=== PATIENT | female | born 1940 | race Caucasian/White ===

== ENCOUNTER 2023-01-27 15:00 | Outpatient (RCR) | payer MEDICARE, BC, SELFPAY | END 2023-05-27 23:59 | disposition home or self-care (01) | PROVIDERS: PCP Family Medicine; Visit Provider Family Medicine | DX: R10.32 Left lower quadrant pain (principal); S76.012A Strain of muscle, fascia and tendon of left hip, initial encounter; R26.9 Unspecified abnormalities of gait and mobility; R53.1 Weakness; M25.60 Stiffness of unspecified joint, not elsewhere classified; Z51.89 Encounter for other specified aftercare | CPT/HCPCS: 97110; 97140; 97162; 97535 ==

== ENCOUNTER 2023-07-28 15:17 | Observation (INO) | payer MEDICARE, BC, SELFPAY ==
[2023-07-28] VITALS (25 sets, daily range): BP systolic 153–196; BP diastolic 84–104; PULSE 51–74; RESP 16–18; TEMP 36.7–36.8; O2SAT 92–99; BMI 22.8; BMI 22.3
--- NOTE | 2023-07-28 15:48 | CT_ITS ---
Patient: YOGESH BUSTOS Facility:?[facility] Patient ID:?[id number] Site Patient ID:?[id number]. Site :?[id number] Study:?CT-Head W/O-07/28/2023 4:12:05 PM Ordering Physician:SHERIF Final Report: INDICATION: Visual changes. TECHNIQUE: CT head without contrast. COMPARISON: None. FINDINGS: Mild generalized volume loss. Mild ill-defined low attenuation in the periventricular and subcortical white matter. Intracranial atherosclerosis. There is no mass effect or midline shift. No hydrocephalus. No CT evidence of acute hemorrhage or infarction. No abnormal extra-axial fluid collection. Bone windows show no acute calvarial fracture. Paranasal sinuses and orbits as imaged are unremarkable. IMPRESSION: 1. No acute intracranial abnormality. 2. Mild generalized volume loss and changes of chronic small vessel ischemic disease. Dictated by Sean Cortes MD @ 07/28/2023 4:42:44 PM Please note that all CT scans at this facility use dose modulation, iterative reconstruction, and/or weight-based dosing when appropriate to reduce radiation dose to as low as reasonably achievable. Dictated by: Sean Cortes MD @ 07/28/2023 16:42:55 Signed by:?Sean Cortes MD @07/28/2023 4:42:55 PM (Electronic Signature)
--- NOTE | 2023-07-28 15:52 | ED_ITS ---
HPI - General Adult General Chief complaint: Neuro Symptoms/Altered Deficit Stated complaint: vision issues, feeling unwell Time Seen by Provider: 07/28/23 15:18 History of Present Illness HPI narrative: [age] year white female who is on Coumadin for DVT and has a history of hypertension, presents with blurred vision and double vision over about 9 hours today. 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 at her [employer] and noticed some blurred and double vision. She continues to feel that she had been home took a nap and it recurred and her convinced her to come to the ER now she has no headache, no focal neurologic changes no weakness in arms or legs no facial asymmetry. No word-finding inability or no visual perception problem other than just double vision. No eye pain no Related Data Home Medications Medication Instructions Recorded Confirmed cyanocobalamin (vitamin B-12) 1,000 mcg PO DAILY 07/28/23 07/28/23 1,000 mcg tablet diltiazem HCl 120 mg 120 mg PO DAILY 07/28/23 07/28/23 capsule,extended release 24 hr famotidine 20 mg tablet 20 mg PO QPM 07/28/23 07/28/23 warfarin 2.5 mg tablet mg PO 07/28/23 Allergies Allergy/AdvReac Type Severity Reaction Status Date / Time No Known Allergies Allergy Unknown Verified 07/28/23 15:36 Review of Systems Status of ROS: Reports: 6 or more systems reviewed and unremarkable except as noted in History and below Exam Narrative: Exam Narrative: Objective vital signs show elevated blood pressure 196/104 afebrile O2 sat 95% In general patient is no apparent distress talkative communicative no distress, she has nystagmus bilaterally cyst very slight for a couple of beats she has pupils are equal reaction to light extra movements appear intact no facial asymmetry noted mouth is clear neck is supple chest is clear heart rate and rhythm regular 2/6 systolic murmur occasional ectopic beat noted abdomen benign soft extremities are no edema normal strength sensation and tone in her upper lower extremities. Const: Vital Signs, click to edit/add: Vital Signs - 24 hr 07/28/23 15:36 07/28/23 15:45 07/28/23 15:48 Temperature 98.3 F Pulse Rate 63 Pulse Rate [Pulse Oximeter] 63 Respiratory Rate 18 Blood Pressure Blood Pressure [Ri ght Upper Arm] 196/104 H Pulse Oximetry 95 97 95 Oxygen Delivery Me thod Room Air 07/28/23 16:00 07/28/23 16:01 07/28/23 16:57 Temperature Pulse Rate 55 L 57 L 60 Pulse Rate [Pulse Oximeter] Respiratory Rate Blood Pressure 175/95 H Blood Pressure [Ri ght Upper Arm] Pulse Oximetry 96 95 94 Oxygen Delivery Me thod 07/28/23 17:00 07/28/23 17:02 07/28/23 17:03 Temperature Pulse Rate 53 L 57 L 52 L Pulse Rate [Pulse Oximeter] Respiratory Rate 16 Blood Pressure 183/84 H Blood Pressure [Ri ght Upper Arm] Pulse Oximetry 97 94 95 Oxygen Delivery Me thod 07/28/23 17:15 07/28/23 17:30 07/28/23 17:32 Temperature Pulse Rate 51 L 61 68 Pulse Rate [Pulse Oximeter] Respiratory Rate Blood Pressure 177/87 H Blood Pressure [Ri ght Upper Arm] Pulse Oximetry 96 94 95 Oxygen Delivery Me thod 07/28/23 17:45 07/28/23 17:59 07/28/23 18:00 Temperature Pulse Rate 67 56 L 53 L Pulse Rate [Pulse Oximeter] Respiratory Rate Blood Pressure 196/90 H Blood Pressure [Ri ght Upper Arm] Pulse Oximetry 95 95 96 Oxygen Delivery Me thod Course Vital Signs Vital signs: Initial Vital Signs Temperature 98.3 F 07/28/23 15:36 Temperature Source Temporal Artery Scan 07/28/23 15:36 Pulse Rate 63 07/28/23 15:36 Respiratory Rate 18 07/28/23 15:36 Blood Pressure 196/104 H 07/28/23 15:36 Blood Pressure Mean 134 H 07/28/23 15:36 Pulse Oximetry 95 07/28/23 15:36 Oxygen Delivery Method Room Air 07/28/23 15:36 Vital Signs Temperature 98.3 F 07/28/23 15:36 Pulse Rate 63 07/28/23 15:36 Respiratory Rate 18 07/28/23 15:36 Blood Pressure 196/104 H 07/28/23 15:36 Pulse Oximetry 95 07/28/23 15:36 Oxygen Delivery Method Room Air 07/28/23 15:36 Temperature 98.3 F 07/28/23 15:36 Pulse Rate 53 L 07/28/23 18:00 Respiratory Rate 16 07/28/23 17:03 Blood Pressure 196/90 H 07/28/23 17:59 Pulse Oximetry 96 07/28/23 18:00 Oxygen Delivery Method Room Air 07/28/23 15:36 Medications Administered Medications: Discontinued Medications Generic Name Dose Route Start Last Admin Trade Name Khushbu PRN Reason Stop Dose Admin Sodium Chloride 500 mls @ 500 mls/hr 07/28/23 15:48 07/28/23 18:00 0.9 % Sodium Chloride 500 Ml IV 07/28/23 16:47 Infused .Q1H ONE Infusion Medical Decision Making MDM Narrative Medical decision making narrative: 83-year-old female with diplopia today. She is on Coumadin for DVT. They could be reasonable check a head CT, labs, INR. EKG body former and oximeter. Will review after the CT the head. May need Neurology discussion. The patient does notice that the diplopia goes away when I cover 1 eye for her and covering each eye cause it to go away. Binocular diplopia is present. Patient seems to see 2 images on top of each other for example looking at a window shows see a window on top of a window. Addendum 4:[address] Iza Perera stroke Neurology at [facility]. She recommended a CT CTA, and then followed by a plain MRI of the brain. Concern would be for a mid brain or [place] type stroke, certainly could be hemorrhagic 2 will check her INR. Will look for the results, Dr. Perera will review these as well. 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 Perera again. These are ischemic. There was no evidence of CT head or neck angio abnormalities in the neck or the head. Addendum 5:52 p.m.: Discussed with Dr. Sandhya Perera stroke neurologist. She recommended telemetry overnight, IV fluid, lipid profile, hemoglobin A1c. Would just stick with the Coumadin for now. She will have her partners re-evaluate the patient tomorrow and consider adding aspirin, but at the patient's age she felt just sick simply continuing the Coumadin would be appropriate. She also recommended an echocardiogram either inpatient or outpatient. Will discuss with our hospitalist team. She also recommended and OT assessment. Lab Data Labs: Lab Results 07/28/23 Range/Units 16:00 WBC 3.26 L (4.50-11.00) K/uL RBC 4.51 (4.00-5.20) m/uL Hgb 14.3 (12.0-16.0) gm/dL Hct 43.8 (33.0-51.0) % MCV 97 (80-100) fL MCH 32 (26-34) pg MCHC 33 (32-36) gm/dL RDW Coeff of Kalyn 14.2 (11.5-15.5) % Plt Count 168 (140-440) K/uL Neut % (Auto) 50.4 (42.0-72.0) % Lymph % (Auto) 36.2 (20-44) % [place] % (Auto) 11.0 (0.0-11.0) % Eos % (Auto) 1.8 (0.0-7.0) % Baso % (Auto) 0.6 (0.0-3.0) % Neut # (Auto) 1.60 L (1.7-7.0) K/uL Lymph # (Auto) 1.20 (0.90-2.90) K/uL [place] # (Auto) 0.40 (0.00-0.90) K/UL Eos # (Auto) 0.10 (0.00-0.50) K/uL Baso # (Auto) 0.00 (0.00-0.30) K/uL Abs Immat Gran (auto) 0.00 (0.00-0.30) K/uL Imm/Tot Granulo (auto) 0.0 % INR 2.00 H (0.91-1.10) APTT 47 H (23-33) Seconds Sodium 138 (135-149) mmol/L Potassium 4.0 (3.6-5.1) mmol/L Chloride 106 (96-114) mmol/L Carbon Dioxide 29 (20-32) mmol/L Anion Gap 3 L (7-15) mEq/L BUN 14 (7-30) mg/dL Creatinine 0.7 (0.5-1.5) mg/dL Estimated Creat Clear 29.54 Estimated GFR 85 ml/min Glucose 92 (60-115) mg/dL Calcium 9.8 (8.4-10.6) mg/dL Total Bilirubin 0.9 (0.1-1.5) mg/dL Direct Bilirubin 0.0 (0.0-0.5) mg/dL AST 25 (12-35) U/L ALT 12 (4-35) U/L Alkaline Phosphatase 75 (40-150) U/L C-Reactive Protein < 0.5 L (0.5-1.0) mg/dL Total Protein 7.5 (6.0-8.3) g/dL Albumin 4.3 (3.3-5.0) g/dL Discharge Plan Discharge Clinical Impression: Diplopia, Stroke Patient Disposition: Admitted As Observation
--- OUTSIDE RECORDS SUMMARY | 2023-07-28 15:57 | XMS_ITS | Clinical Summary ---
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 08/22/2016 Active cyanocobalamin (Vitamin B-12) 1000 MCG tablet TAKE 1 TABLET (1,000 MCG) BY MOUTH ONCE DAILY. 07/03/2021 Active famotidine (Pepcid) 20 MG tablet Take 20 mg by mouth at bedtime. 08/15/2021 Active warfarin (Coumadin) 2.5 MG tablet Tskr by mouth 5 mg (2.5 mg x 2) every e, Mon, Sat; 2.5 mg (2.5 mg x 1) all other days 06/28/2021 Active acetaminophen (Tylenol) 500 MG tablet Patient states she takes 2 tablets (1000mg) daily (AM) Max acetaminophen dose: 4000mg in 24 hrs. 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 Could consider repeating in 5 years. Took fosamax for years. Acute deep vein thrombosis ( DVT) of popliteal vein of left lower extremity 07/13/2006 Overview: Left leg, recurrent. Primary osteoarthritis of both hips 07/13/2006 Reflux esophagitis 07/13/2006 Immunizations Name Administration Dates Next Due COVID-19 mRNA Vaccine (Pfize r-Purple 12+ Yrs) 12/24/2020,05/12/2020,04/21/2020 Hepatitis A & B 08/22/2002,03/25/2002,02/21/2002 Influenza H1N1 With Preservative 02/03/2009 Influenza High Dose Quadrivalent 12/16/2020,11/12 Influenza Quad Preservative Free 02/03/2009 Influenza Quad Split 12/06/2013 Influenza Seasonal Inj A,B 11/12/2015,,12/13/2011,2008,01/07/2008 Influenza Seasonal Inj A,B High Dose ,12/20/2017,12/12/2016,2015,12/24/2014 Influenza Seasonal Inj A,B Preservative Free 12/14/2009 Influenza Unspecified Formulation 12/04/2008, Pneumococcal Conjugate, (Prevnar)13-valent 06/25/2014 Pneumovax 23 11/28/2005 TD >7Yrs Preservative Free 11/28/2005 TD >7yrs With Preservative 11/28/2005 Tdap (7 years and older) 06/19/2012 Typhoid Oral 02/21/2002 Zoster Shingrix 2 Dose (Shingles) 07/29/2018, Zoster Zostavax (Shingles) 02/15/2010 Medical History Medical History Date Comments Acute deep vein thrombosis ( DVT) of popliteal vein of left lower extremity (HCC) 07/13/2006 Formatting of this note migh t be different from the original. Left leg, recurrent. Adolescent idiopathic scolio sis of thoracic region 05/22/2017 Arthritis of right hand 06/27/2018 Colon polyp 09/25/2009 Formatting of is note might be different from the original. Colonoscopy 09/2009 polyp repeat in 5 years Colonoscopy 03/2015 polyp repeat in 5 years Essential hypertension 06/25/2018 Osteoporosis 05/07/2008 Formatting of is note might be different from the original. dexa in spring 2008 showed osteopenia range and should be stable. Could consider repeating in 5 years. Took fosamax for years. 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 Vitamin B12 deficiency 05/31/2020 Social History Tobacco Use Types Packs/Day Years Used Date Smoking Tobacco: Former Cigarettes 0.1 10 Smokeless Tobacco: Never Comments:no exposure; starte d 28 y/o quit 38 y/o total 10 years X 1 pack every 10 days Sex and Gender Information Value Date Recorded Sex Assigned at Not on file Gender Identity Not on file Sexual Orientation Not on file Job Start Date Occupation Industry Not on file Not on file Not on file Obstetrics History Last Filed Vital Signs Vital Sign Reading Time Taken Comments Blood Pressure 172/89 09/09/2021 10:55 AM CDT Pulse 54 09/09/2021 10:20 AM CDT Temperature 36.3 ??C (97.3 ??F) 09/09/2021 10:16 AM C DT Respiratory Rate - - Oxygen Saturation 98% 09/09/2021 10:16 AM CDT Inhaled Oxygen Concentration - - Weight 53 kg (116 lb 13.5 oz) 09/09/2021 10:16 A M CDT Height - - Body Mass Index - - Plan of Treatment Health Maintenance Due Date Last Done Comments MEDICARE AWV 1940 RSV Vaccination (60+ yrs) (Abrysvo/Arexvy) (1 - 1-dose 60+ series) 1998 DXA,FEMALES AGE 65 OR GREATER 05/19/2003 TETANUS (Standing Order) 06/19/2022 013, 11/28/2005, 11/28/2005 COVID-19 Vaccine ( season) 2022 12/24/2020, 05/12/2020, 04/21/2020 Influenza Vaccine Seasonal (Standing Order) (#1) 2022 12/16/2020, 12/04/2019, 11/28/2018, Additional history exists Hepatitis B Vaccine (Standing Order) Completed 08/22/2002, 03/25/2002, 02/21/2002 PERTUSSIS (Standing Order) Completed 06/19/2012 Pneumococcal Vaccine: 65+ yrs (Standing Order) Completed 06/25/2014, 11/28/2005 Shingrix (Zoster recombinant) vaccine (Standing Order) Completed 07/29/2018, 05/30/2018 HPV Vaccine (Standing Order) Aged Out No longer eligible based on patient's age to complete this topic
--- OUTSIDE RECORDS SUMMARY | 2023-07-28 15:57 | XMS_ITS | Clinical Summary ---
Author Name Unknown Organization [facility] Address [place], [place] [address] Care Team Providers Care Generator Man Name Role Phone Lev Escoto MD Unavailable Unavail Mahnaz Linares DO Primary Care Provider [phone] Allergies No known active allergies Medications Medication Sig Dispensed Refills Start Date End Date Status calcium with vitamin D3 (CALCIUM 500+D) tablet Take 1 tablet by mouth 3 times daily with meals. 0 08/22/2016 Active acetaminophen (TYLENOL EXTRA STRGTH) 500 mg tablet Patient states she takes 2 tablets (1000mg) daily (AM) Max acetaminophen dose: 4000mg in 24 hrs. 0 04/28/2021 Active cetirizine (ZYRTEC) 10 mg tabletIndications: Environmental allergies Take 1 Tablet (10 mg) by mouth once daily. 90 Tablet 11/22/2021 Active diclofenac topical (VOLTAREN) 1 % gelIndications:Art hritis Apply 2-4 g topically to affected area(s) four times daily. As needed for joint pain/arthritis 350 g 04/03/2023 Active dilTIAZem CD (CARDIZEM CD) 120 mg extended release 24 hr capsuleIndications :Paroxysmal SVT (supraventricular tachycardia) (HC) Take 1 Capsule (120 mg) by mouth once daily. 90 Capsule 3 04/03/2023 Active famotidine (PEPCID) 20 mg tabletIndications: Gastroesophageal reflux disease with esophagitis without hemorrhage Take 1 Tablet (20 mg) by mouth at bedtime. 90 Tablet 3 04/03/2023 Active warfarin (COUMADIN) 2.5 mg tabletIndications: Acute deep vein thrombosis (DVT) of popliteal vein of left lower extremity (HC),Anticoagulati on monitoring, INR range 2-3 Taking 2 pills Sat/Sun, Tues, Thurs; 1 pill Mon-Wed-Fri all other days or as directed by INR clinic 145 Tablet 2 04/03/2023 Active cyanocobalamin (VITAMIN B12) 1,000 mcg tabletIndications: Vitamin B12 deficiency TAKE 1 TABLET (1,000 MCG) BY MOUTH ONCE DAILY. 90 Tablet 2 04/26/2023 Active Active Problems Problem Noted Date Diagnosed Date Paroxysmal SVT (supraventricular tachycardia) Closed nondisplaced fracture of left pubis with routine healing 01/25/2023 Overview: Dec 2022: no identifiable injury. Paroxysmal SVT (supraventricular tachycardia) Vitamin B12 deficiency 05/31/2020 Arthritis of right hand 06/27/2018 Essential hypertension 06/25/2018 Adolescent idiopathic scoliosis of thoracic lorelei on 05/22/2017 Transient global amnesia 09/24/2014 Anticoagulation monitoring, INR range 2-3 2013 ACP (advance care planning) 06/21/2013 Overview: Reviewed and they will talk about this. Robina Drew M.D. 06/21/2013 8:43 AM Colon polyp 09/25/2009 Overview: Colonoscopy 09/2009 polyp repeat in 5 years Colonoscopy 03/2015 polyp repeat in 5 years Routine general medical exam ination at a health care facility 05/07/2008 Osteoporosis, unspecified 05/07/2008 Overview: dexa in spring 2008 showed osteopenia range and should be stable. Could consider repeating in 5 years. Took fosamax for years. Dec 2022: Pelvis frigid over the fracture of the pubic ramus on the left side, no identifiable injury. Acute deep vein thrombosis ( DVT) of popliteal vein of left lower extremity 07/13/2006 Overview: Left leg, recurrent. Reflux esophagitis 07/13/2006 Primary osteoarthritis of both hips 07/13/2006 Resolved Problems Problem Noted Date Diagnosed Date Resolved Date DVT of popliteal vein 08/31/20112013 Encounters Date Type Department Care Team Description 07/04/2023 11:30 AM CDT Orders Only [facility] [address] [place] [address] Lab[facility] [place] [facility] 07/04/2023 Anticoagulation (warfarin) [facility] [address] [place] [address] 1, [place] [facility] Anticoagulation 07/04/2023 Travel 06/16/[address] [place] [address] Mahnaz Howell DO Anticoagulation (Annual re-enrollment ) 06/05/2023 9:40 AM CDT Ancillary Procedure [facility] [address] [place] [address] 06/05/2023 Travel 05/24/2023 10:30 AM CDT Orders Only [address] [place] [address] Lab, [place] [facility] 05/24/2023 Anticoagulation (warfarin) [facility] [address] [place] [address] 1, [place] [facility] Anticoagulation 05/24/2023 Telephone [facility] [address] [place] [address] Mahnaz Howell DO Anticoagulation (Lab question) 05/24/2023 Travel from Last 3 Months Immunizations Name Administration Dates Next Due Amb Influenza, Inact (High-d ose Quadrivalent) (Flu Clinic Only) 12/04/2019 COVID-19 vaccine ([employer] [facility] 30mcg/0.3mL) MOE BRIGHT 10/12/2021,05/12/2020,04/21/2020 HepA-HepB (Twinrix) 08/22/2002,03/25/2002,2001 Influenza A (H1N1), Inactiva devan (Age >=3 Years) 02/03/2009 Influenza, High-dose Inactivated 019,12/20/2017,12/12/2016,12/24,12/24/2014 Influenza, High-dose Quadriv alent Inactivated 12/26/2022,12/21/2021,12/16/2020 Influenza, IIV3 (Age 6-35 mos) 12/14/2009 Influenza, IIV3 (Age >=3 years) 11/12/19 16,12/07/2012,12/13/2011,12/04,01/07/2008 Influenza, IIV4 (=>6mos) MDV 12/06/2013 Pneumococcal Poly,23-Valent (Pneumovax) 11/28/2005 Pneumococcal conj 13-Valent (Prevnar 13) 06/25/2014 RSV, Recombinant ADJ Reconst ituted (Arexvy 120MCG/0.5mL) 02/27/2023 Td (Age >=7 Years) 11/28/2005 Td, Preservative Free (age >= 7 Years) 6 Tdap 01/14/2023,06/19/2012 Typhoid (oral) 02/21/2002 Zoster (Shingrix-RZV, recombinant) 07/29/2018, Zoster (Zostavax-ZVL, live) 02/15/2010 Family History Medical History Relation Name Comments Psychiatric illness Father dad at age 97 dementia Cancer Mother mom of lym phoma - at 71 Cancer Sister 1 at 40 - ey e cancer spread to brain No Known Problems Sister 2 Cancer-breast No Family History Cancer-colon No Family History Cancer-ovarian No Family History Relation Name Status Comments Father (Age 97) old age Mother (Age 73) leukemia Sister 1 (Age 40) tumor in h er eye Sister 2 Social History Tobacco Use Types Packs/Day Years Used Date Smoking Tobacco: Former Cigarettes Q uit: 03/13/1969 Smokeless Tobacco: Never Tobacco Cessation:Counseling Given: Not Answered Alcohol Use Standard Drinks/Week Comments Yes 7 (1 standard drink = 0.6 oz pur e alcohol) PHQ-2 Answer Date Recorded PHQ-2 TOTAL SCORE 0 04/03/2023 Social Connections Answer Date Recorded Frequency of Communication with Friends and Fami ly 0 12/22/2022 Alcohol Use Answer Date Recorded How often do you have a drink containing alcohol ? 4 07/13/2022 How many drinks containing a lcohol do you have on a typical day when you are drinking? 0 07/13/2022 How often do you have five or more drinks on one occasion? 0 07/13/2022 Financial Resource Strain Answer Date R ecorded Difficulty of Paying Living Expenses 3 12/22/2022 Difficulty of Paying Living Expenses Not on file 12/22/2022 Food Insecurity Answer Date Recorded Worried About Running Out of Food in the Last Ye ar 1 12/22/2022 Transportation Needs Answer Date Record ed Lack of Transportation (Medical) 1 12/22/2022 Housing Stability Answer Date Recorded Unable to Pay for Housing in the Last Year 1 12/22/2022 Sex and Gender Information Value Date Recorded Sex Assigned at Not on file Gender Identity Not on file Sexual Orientation Not on file Obstetrics History Para Term AB IAB SAB Ectopic Multiple Livin g Live Births 2 2 2 Date Outcome GA Total Labor Labor/2nd/3rd Weight Sex Delivery Anes PTL Penny A1 A5 Name Cl in Para Para Last Filed Vital Signs Vital Sign Reading Time Taken Comments Blood Pressure 148/82 04/03/2023 3:43 PM TELEMARKETING SUPERVISOR Pulse 59 04/03/2023 2:47 PM TELEMARKETING SUPERVISOR Temperature 37 ??C (98.6 ??F) 06/28/2021 1:24 PM CDT Respiratory Rate 16 03/27/2019 12:48 PM TELEMARKETING SUPERVISOR Oxygen Saturation 97% 04/03/2023 2:47 PM TELEMARKETING SUPERVISOR Inhaled Oxygen Concentration - - Weight 51.3 kg (113 lb) 04/03/2023 2:47 PM TELEMARKETING SUPERVISOR Height 149.4 cm (4' 10.82) 04/03/2023 2:[address] Body Mass Index 22.96 04/03/2023 2:47 PM TELEMARKETING SUPERVISOR Plan of Treatment Upcoming Encounters Date Type Department Care Team (Late st Contact Info) Description 08/10/2023 12:45 PM CDT Orders Only [facility] [address] [place] [address] Lab, [place] [facility] Maintenance Due Date Last Done Comments Influenza for age 65+ 11/12/2023 12/26/2022 , 12/21/2021, 12/16/2020, Additional history exists BMI (ht and wt on same day) for age 18+ 04/03/2024 04/03/2023, 06/09/2021, 05/28/2020, Additional history exists Depression screening for age 12+ 04/03/2024 04/03/2023, 12/22/2022, 06/16/2021, Additional history exists Medicare Wellness for age 65+ 04/03/2024, 06/09/2021, 05/28/2020, Additional history exists Tetanus booster 01/14/2033 01/14/2023, 04/0 11/2012, 11/28/2005, Additional history exists Pneumococcal series for age 65+ Completed 5, 11/28/2005 Zoster (shingles) series for age 50+ Completed 07/29/2018, 05/30/2018, 02/15/2010 DEXA/DXA scan for age 65+ Completed 2019, 03/26/2015, 06/24/2008, Additional history exists Tdap Completed 01/14/2023, 06/19/2012 COVID-19 vaccine series Completed 01/18/20, 11/15/2022, 02/15/2022, Additional history exists Procedures Procedure Name Priority Date/Time Associated Diagnosis Comments INR,POCT Routine 07/04/2023 11:31 AM CDT Acute deep vein thrombosis (DVT) of popliteal vein of left lower extremity (HC) Anticoagulation monitoring, INR range 2-3 XR MAMMO EULALIA BILAT SCREEN Routine 06/05/2023 9:54 AM CDT Visit for screening mammogram INR,POCT Routine 05/24/2023 10:31 AM CDT Acute deep vein thrombosis (DVT) of popliteal vein of left lower extremity (HC) Anticoagulation monitoring, INR range 2-3 XR DXA BONE DENSITY 1 SITE AXIAL AND 1 SITE PERIPHERAL Routine 04/03/2019 9:19 AM TELEMARKETING SUPERVISOR Other specified disorders of bone density and structure, multiple sites Osteopenia, unspecified location from Last 3 Months or Most Recently Relevant to Health Maintenance Results * (ABNORMAL) INR,POCT (07/04/2023 11:31 AM CDT) Only the most recent of2 resultswithin the time period is included. INR 2.2(H) <1.3 07/04/2023 11:39 AM CDT [facility] Blood BLOOD SPECIMEN / Unknown 07/04/2023 11:31 AM CDT 07/04/2023 11:39 AM CDT Narrative [facility] - 07/04/2023 11:39 AM CDT ?Therapeutic Range 2.0-3.0 for most anticoagulated patients 2.5-3.5 or 4.0 for high risk patients Mahnaz Howell DO LABORATORY [facility] [address] [place] [address], * XR MAMMO EULALIA BILAT SCREEN (06/05/2023 9:54 AM CDT) Anatomical Region Laterality Modality BREASTS, Breast Left, Breast Right Bilateral Mammography Impressions 06/05/2023 12:39 PM CDT ??There is no radiographic evidence for malignancy. ??Recommend annual mammograms. MAMMOGRAM ASSESSMENT: ??ACR 1 Negative PATIENTS: You will also receive a letter with your examination results in an easy to read format. ??If you have questions about your results, please contact your referring provider. Narrative 06/05/2023 12:39 PM CDT For Patients: As a result of the Century Cures Act, medical imaging exams and procedure reports are released immediately into your electronic medical record. You may view this report before your referring provider. If you have questions, please contact your health care provider. XR MAMMO EULALIA BILAT SCREEN [[id number]] CLINICAL HISTORY: ??This is an asymptomatic 83 y.o. patient. INDICATION FOR EXAM: Mammogram Screening. TECHNIQUE: CC & MLO views were obtained. ??This study was evaluated with the assistance of Computer-Aided Detection. Breast Tomosynthesis was used in interpretation. COMPARISON FILM: Yes 05/23/22 [facility] 05[facility]04/21 [facility] FINDINGS: ??The breasts are heterogeneously dense, which may obscure small masses. There are no dominant masses, suspicious micro calcifications or areas of architectural distortion. Mahnaz Howell DO MAMMO * XR DXA BONE DENSITY 1 SITE AXIAL AND 1 SITE PERIPHERAL (04/03/2019 9:19 AM TELEMARKETING SUPERVISOR) Anatomical Region Laterality Modality LUMBAR SPINE Other Narrative 04/09/2019 8:56 AM TELEMARKETING SUPERVISOR Please see scanned document for results of this study. Mahnaz Howell DO DEXA from Last 3 Months or Most Recently Relevant to Health Maintenance Care Teams Generator Man Relationship Specialty Start Date End Date Mahnaz Howell DO [address] [place] [address] PCP - General Family Practice 03/27/19 Lev Escoto MD Orthopedics Surgery - Orthopedics 06/13/11
--- NOTE | 2023-07-28 15:58 | MR_ITS ---
Patient: YOGESH BUSTOS Facility:?[facility] Patient ID:?[id number] Site Patient ID:?[id number]. Site :?[id number] Study:?MRI-Head W/O-07/28/2023 5:07:25 PM Ordering Physician:PENNIE GORMAN Final Report: Indication: Diplopia Technique: Multiplanar, multisequence MRI of the brain obtained without contrast. Comparison: Earlier same day CT head and CTA head/neck Findings: There is a small (8 mm) area of acute ischemia involving the anteromedial left thalamus, with an additional punctate focus at the left parietal cortex. No evidence of hemorrhagic transformation. Punctate FLAIR hyperintense foci throughout the supratentorial white matter, typical of minor chronic microangiopathy. Generalized cerebral volume loss. Unremarkable midline structures. Preserved major intracranial flow voids. Normal bone marrow signal. No paranasal sinus air-fluid level or mastoid effusion. Bilateral lens implants. Impression: 1. 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 2. No evidence of hemorrhagic transformation or midline shift. 3. Mild generalized cerebral volume loss and minor chronic microangiopathy changes. Exam findings were discussed with Pennie Estrella at 5:21 p.m. on 07/28/2023. Dictated by Kathy Gomez MD @ 07/28/2023 5:23:54 PM Signed by:?Kathy Gomez MD @07/28/2023 5:23:54 PM (Electronic Signature)
--- NOTE | 2023-07-28 16:13 | CT_ITS ---
Patient: YOGESH BUSTOS Facility:?[facility] Patient ID:?[id number] Site Patient ID:?[id number]. Site :?[id number] Study:?CT-Neck Angio W/IV ONLY-07/28/2023 4:37:34 PM Ordering Physician:SHERIF Final Report: INDICATION: Diplopia, vision changes. TECHNIQUE: CTA neck with contrast bolus tracking, 3D angiographic rendering using maximum intensity projection (MIP) and images permanently archived. FINDINGS: There is carotid atherosclerosis. There is no significant carotid artery stenosis or dissection. There is no significant vertebral artery stenosis or dissection. The soft tissues of the neck are within normal limits. The cervical spine is in normal alignment. Degenerative changes are noted in the cervical spine. IMPRESSION: No significant carotid or vertebral artery stenosis or dissection. Please note that all CT scans at this facility use dose modulation, iterative reconstruction, and/or weight-based dosing when appropriate to reduce radiation dose to as low as reasonably achievable. Dictated by Mj Bajwa MD @ 07/28/2023 7:20:18 PM Signed by:?Mj Bajwa MD @07/28/2023 7:20:18 PM (Electronic Signature)
--- NOTE | 2023-07-28 16:13 | CT_ITS ---
Patient: YOGESH BUSTOS Facility:?[facility] Patient ID:?[id number] Site Patient ID:?[id number]. Site :?1940 Study:?CT-Head Angio W/IV ONLY-07/28/2023 4:38:19 PM Ordering Physician:SHERIF Final Report: INDICATION: Diplopia, vision changes. TECHNIQUE: CTA head with contrast bolus tracking, 3D angiographic rendering using maximum intensity projection (MIP) and images permanently archived. FINDINGS: There is normal opacification of the intracranial vasculature. There is no large vessel occlusion. No aneurysm is identified. IMPRESSION: Unremarkable head CTA. Please note that all CT scans at this facility use dose modulation, iterative reconstruction, and/or weight-based dosing when appropriate to reduce radiation dose to as low as reasonably achievable. Dictated by Mj Bajwa MD @ 07/28/2023 7:22:00 PM Signed by:?Mj Bajwa MD @07/28/2023 7:22:00 PM (Electronic Signature)
[2023-07-28 16:17] LABS: Basophils Percent Auto 0.6 % (0.0-3.0); Eosinophils Percent Auto 1.8 % (0.0-7.0); Hematocrit 43.8 % (33.0-51.0); Hemoglobin* 14.3 gm/dL (12.0-16.0); Lymphocytes Percent Auto 36.2 % (20-44); Mean Corpuscular HGB Conc 33 gm/dL (32-36); Mean Corpuscular Hemoglobin 32 pg (26-34); Mean Corpuscular Volume 97 fL (80-100); Neutrophils Percent Auto 50.4 % (42.0-72.0); Platelet Count* 168 K/uL (140-440); RDW Coefficient of Variation % 14.2 % (11.5-15.5); Red Blood Count 4.51 m/uL (4.00-5.20); White Blood Count* 3.26 K/uL (4.50-11.00)
[2023-07-28 16:24] LABS: Chloride* 106 mmol/L (96-114)
[2023-07-28 16:25] LABS: Albumin* 4.3 g/dL (3.3-5.0); Slide Review Reflex No; Sodium* 138 mmol/L (135-149)
[2023-07-28 16:27] LABS: Prothrombin Time 24.2 Seconds
[2023-07-28 16:28] LABS: Alanine Aminotransferase* 12 U/L (4-35); Anion Gap 3 mEq/L (7-15); Aspartate Amino Transferase* 25 U/L (12-35); Bilirubin Total* 0.9 mg/dL (0.1-1.5); Blood Urea Nitrogen* 14 mg/dL (7-30); Carbon Dioxide* 29 mmol/L (20-32); Creatinine* 0.7 mg/dL (0.5-1.5); Est. Creatinine Clearance* 29.54; Estimated Glomerular Filt Rate 85 ml/min; Partial Thromboplastin Time* 47 Seconds (23-33); Total Protein* 7.5 g/dL (6.0-8.3)
[2023-07-28 16:29] LABS: Calcium* 9.8 mg/dL (8.4-10.6); Glucose* 92 mg/dL (60-115)
[2023-07-28 16:36] LABS: C Reactive Protein* < 0.5 mg/dL (0.5-1.0)
[2023-07-28 16:45] LABS: Alkaline Phosphatase* 75 U/L (40-150)
[2023-07-28] MEDS: 0.9 % SODIUM CHLORIDE 500 ML 500 ML IV (17:15)
--- NOTE | 2023-07-28 18:06 | P.IMHP_ITS ---
Hospitalist- H&P: CHRISSY History of Present Illness Date Seen: 07/28/23 Chief complaint: vision issues, feeling unwell Narrative: Deborah Cuevas is a 83 year old female admitted through the emergency department with onset this morning of double vision, speech impairment and unsteady gait. She awoke before 6:00 a.m. and was feeling fine. She drove to her [place] about 615 and she said while she was driving her vision seemed off. She attempt to get out of the car but had trouble walking at that time. She also reported having trouble talking at that time. She went back to her car and sat in her car and fell asleep. Around 8:06 a.m. she awoke while sitting in her car. She was still having trouble with double vision and feeling unsteady on her feet so she decided to go home. Her noted that she appeared to be somewhat pale. She was able to read the newspaper at this time. She decided to lay down at home. She again was sleeping for appeared of time. When she awoke she continued to have double vision and feel unbalanced in her gait and had generalized weakness so she came to the emergency room. At this time she reports feeling entirely well. She is not aware of any difficulty with speaking or understanding speech or finding words. She reports her vision is normal without blurring or double vision. She does not have a sense of spinning or the room spinning. She does not have any nausea or vomiting. She does not have a headache. She does not have any focal weakness. She feels like her hands, arms and legs are moving normally. No numbness or tingling. She has a remote history of a DVT which sounds like it was unprovoked and she has been on chronic warfarin therapy since then. She has had monthly INRs which are in the low normal therapeutic range between 2 and 2.5 over the last 3 months. She is not aware of having diabetes. She does have a history of paroxysmal SVT and is on diltiazem for that. She also has hypertension. She is unaware of having a problem with her lipids. No previous history of stroke or neurologic deficits. 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 She has been quite busy cleaning out her own home and setting up the garage sale at her local [employer]. 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 (ICD-10) Vitamin B12 deficiency ?E53.8 - Deficiency of other specified B group vitamins (ICD-10) Paroxysmal SVT (supraventricular tachycardia) ?I47.10 - Supraventricular tachycardia, unspecified (ICD-10) Osteoporosis ?M81.0 - Age-related osteoporosis without current pathological fracture (ICD- 10) DVT (deep venous thrombosis) ?I82.409 - Acute embolism and thrombosis of unspecified deep veins of unspecified lower extremity (ICD-10) Primary generalized (osteo)arthritis ?M15.0 - Primary generalized (osteo)arthritis (ICD-10) Gastroesophageal reflux ?K21.9 - Gastro-esophageal reflux disease without esophagitis (ICD-10) Surgical History (Updated 07/28/23 @ 19:00 by Fadi Perera MD) History of arthroplasty of left hip ?Z96.642 - Presence of left artificial hip joint (ICD-10) History of total right hip arthroplasty ?Z96.641 - Presence of right artificial hip joint (ICD-10) History of colonoscopy ?Z98.890 - Other specified postprocedural states (ICD-10) Family History (Updated 07/28/23 @ 19:01 by Fadi Perera MD) Mother Lymphoma Father Alzheimers disease Social History (Updated 07/28/23 @ 19:01 by Fadi Perera MD) Narrative: She lives independently with her , Gurwinder. He is healthcare power of real estate associate attorney. Code status is DNR. She does not smoke. She occasionally drinks alcohol. Meds Home Medications and Allergies Home Medications Medication Instructions Recorded Confirmed Type cyanocobalamin (vitamin B-12) 1,000 mcg PO DAILY 07/28/23 07/28/23 History 1,000 mcg tablet diltiazem HCl 120 mg 120 mg PO DAILY 07/28/23 07/28/23 History capsule,extended release 24 hr famotidine 20 mg tablet 20 mg PO QPM 07/28/23 07/28/23 History warfarin 2.5 mg tablet mg PO 07/28/23 History Allergies Allergy/AdvReac Type Severity Reaction Status Date / Time No Known Allergies Allergy Unknown Verified 07/28/23 15:36 Exam Narrative: Exam Narrative: She is alert and appears in no distress. Speech is normal. Speech is fluent. She has good comprehension and good articulation. She is oriented to her circumstances. She answers questions with fairly good detail about recent events and past medical history. Head is without trauma. Eyes are normal. Pupils are equal round reactive to light. Extraocular movements are full. Visual garcia are intact. No dysconjugate gaze. There is no facial asymmetry. Intact sensation in her face. Oropharynx is normal. Tongue is midline. Neck is supple without mass or adenopathy. Respirations are clear to auscultation. Good air exchange all lung garcia. Back is noted to have both kyphosis and scoliosis. No tenderness in her back. Cardiovascular: S1, S2, 2/6 systolic ejection murmur heard best at the right upper sternal border. No gallop or rub. Regular rate and rhythm. Abdomen: Bowel sounds are present. Abdomen is soft without tenderness or mass. External genitalia normal. Extremities: Intact peripheral pulses. No edema. Upper extremity strength testing is 5/5 in bilateral shoulder flexion and extension, elbow flexion and extension, wrist flexion extension, pole shaver helper strength and finger extension. Intact sensation to soft touch as well. Lower extremity strength testin/5 in bilateral hips, knee flexion and extension, ankle dorsiflexion plantar flexion and great toe dorsiflexion. Const: Vital Signs, click to edit/add: Vital Signs - 24 hr 07/28/23 15:36 07/28/23 15:45 07/28/23 15:48 Temperature 98.3 F Pulse Rate 63 Pulse Rate [Pulse Oximeter] 63 Respiratory Rate 18 Blood Pressure Blood Pressure [Ri ght Upper Arm] 196/104 H Pulse Oximetry 95 97 95 Oxygen Delivery Me thod Room Air 07/28/23 16:00 07/28/23 16:01 07/28/23 16:57 Temperature Pulse Rate 55 L 57 L 60 Pulse Rate [Pulse Oximeter] Respiratory Rate Blood Pressure 175/95 H Blood Pressure [Ri ght Upper Arm] Pulse Oximetry 96 95 94 Oxygen Delivery Me thod 07/28/23 17:00 07/28/23 17:02 07/28/23 17:03 Temperature Pulse Rate 53 L 57 L 52 L Pulse Rate [Pulse Oximeter] Respiratory Rate 16 Blood Pressure 183/84 H Blood Pressure [Ri ght Upper Arm] Pulse Oximetry 97 94 95 Oxygen Delivery Me thod 07/28/23 17:15 07/28/23 17:30 07/28/23 17:32 Temperature Pulse Rate 51 L 61 68 Pulse Rate [Pulse Oximeter] Respiratory Rate Blood Pressure 177/87 H Blood Pressure [Ri ght Upper Arm] Pulse Oximetry 96 94 95 Oxygen Delivery Me thod 07/28/23 17:45 07/28/23 17:59 07/28/23 18:00 Temperature Pulse Rate 67 56 L 53 L Pulse Rate [Pulse Oximeter] Respiratory Rate Blood Pressure 196/90 H Blood Pressure [Ri ght Upper Arm] Pulse Oximetry 95 95 96 Oxygen Delivery Me thod Documenting provider has reviewed patient's vital signs: yes Hospitalist - H&P: Result Labs Labs: Short CBC 07/28/23 Range/Units 16:00 WBC 3.26 L (4.50-11.00) K/uL Hgb 14.3 (12.0-16.0) gm/dL Hct 43.8 (33.0-51.0) % Plt Count 168 (140-440) K/uL BMP 07/28/23 16:00 Sodium 138 Potassium 4.0 Chloride 106 Carbon Dioxide 29 BUN 14 Creatinine 0.7 Glucose 92 Calcium 9.8 Liver Function 07/28/23 Range/Units 16:00 Total Bilirubin 0.9 (0.1-1.5) mg/dL Direct Bilirubin 0.0 (0.0-0.5) mg/dL AST 25 (12-35) U/L ALT 12 (4-35) U/L Alkaline Phosphatase 75 (40-150) U/L Albumin 4.3 (3.3-5.0) g/dL ECG Attestation: I personally reviewed and interpreted this ECG as follows: (Normal sinus rhythm) Imaging MR Brain: Radiologist's impression: Study:?MRI-Head W/O-07/28/2023 5:07:25 PM Ordering Physician:PENNIE GORMAN Final Report: Indication: Diplopia Technique: Multiplanar, multisequence MRI of the brain obtained without contrast. Comparison: Earlier same day CT head and CTA head/neck Findings: There is a small (8 mm) area of acute ischemia involving the anteromedial left thalamus, with an additional punctate focus at the left parietal cortex. No evidence of hemorrhagic transformation. Punctate FLAIR hyperintense foci throughout the supratentorial white matter, typical of minor chronic microangiopathy. Generalized cerebral volume loss. Unremarkable midline struc tures. Preserved major intracranial flow voids. Normal bone marrow signal. No paranasal sinus air-fluid level or mastoid effusion. Bilateral lens implants. Impression: 1. 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 2. No evidence of hemorrhagic transformation or midline shift. 3. Mild generalized cerebral volume loss and minor chronic microangiopathy changes. Exam findings were discussed with Pennie Estrella at 5:21 p.m. on 07/28/2023. CT scan - head: Radiologist's impression: Study:?CT-Head Angio W/IV ONLY-07/28/2023 4:38:19 PM Ordering Physician:SHERIF Preliminary Report: Prelim: CTA head: 1. No intracranial large vessel occlusion or critical stenosis. CTA neck: 1. No hemodynamically significant stenosis or dissection in the neck. Assessment and Plan Assessment and plan (1) Stroke: Problem comment: Stroke manifested as unsteady gait, diplopia and difficulty speaking. This appears to be resolved at this point. Continue to monitor in the hospital and initiate evaluation and modification of risk factors. With therapeutic INR would not give it additional antiplatelet therapy. Obtain echo, cardiac monitoring, initiate evaluation of lipids and statin therapy. Therapy to evalu ate for subtle deficits. Status: Acute (2) Diplopia: Problem comment: Due to stroke, appears to resolved Status: Acute (3) Hypertension: Problem comment: Blood pressure elevated at this time probably due to stroke. Permissive hypertension but likely resume Cardizem for hypertension and SVT on discharge Status: Acute (4) Chronic anticoagulation: Problem comment: Continue warfarin Status: Acute Plan Admit to the hospital for ongoing evaluation management of stroke and cardiovascular risk factors. Total Time Spent Total Time Spent: Total time spent today is 75 minutes, 50 minutes in coordination of care discussing with patient and other providers ongoing management of stroke.
--- OUTSIDE RECORDS SUMMARY | 2023-07-28 19:38 | XMS_ITS | Clinical Summary ---
Author Name Unknown Organization [employer] [facility] Address [place], [place] [address] Care Team Providers Care Water Mangle Tender Name Role Phone Lev Escoto MD Unavailable Unavail Mahnaz Linares DO Primary Care Provider [phone] Allergies No known active allergies Medications Medication [...] Encounters Date Type Department Care Team Description 07/28/2023 Office Visit [facility] [address] [place] [address] Sandhya Scott MD Telehealth ([facility] (phone consult)) 07/04/2023 11:30 AM CDT Orders Only [facility] [address] [place] [address] Lab, [place] [facility] 07/04/2023 Anticoagulation (warfarin) [facility] [address] [place] [address] 1, [facility] Anticoagulation 07/04/2023 Travel 06/16/[address] [address] Mahnaz Howell DO Anticoagulation (Annual re-enrollment ) 06/05/2023 9:40 AM CDT Ancillary Procedure [address] [address] 06/05/2023 Travel 05/24/2023 10:30 AM CDT Orders Only [address] [address] Lab, [place] [facility] 05/24/2023 Anticoagulation (warfarin) [facility] [address] [place] [address] 1, [facility] Anticoagulation 05/24/[address] [address] Mahnaz Howell DO Anticoagulation (Lab question) 05/24/2023 Travel from Last 3 Months Immunizations Name Administration Dates Next Due Amb Influenza, Inact (High-d ose Quadrivalent) (Flu Clinic Only) 12/04/2019 COVID-19 vaccine ([employer] 30mcg/0.3mL) MOE BRIGHT 10/12/2021,05/12/2020,04/21/2020 HepA-HepB ([employer]) 08/22/2002,03/25/2002,2001 Influenza A (H1N1), Inactivdavis hartman (Age >=3 Years) 02/03/2009 Influenza, High-dose Inactivated [...] Comments Blood Pressure 148/82 04/03/2023 3:43 PM [employer] Pulse 59 04/03/2023 2:47 PM [employer] Temperature 37 ??C (98.6 ??F) 06/28/2021 1:24 PM CDT Respiratory Rate 16 03/27/2019 12:48 PM [employer] Oxygen Saturation 97% 04/03/2023 2:47 PM [employer] Inhaled Oxygen Concentration - - Weight 51.3 kg (113 lb) 04/03/2023 2:47 PM [employer] Height 149.4 cm (4' 10.82) 04/03/2023 2:[address] Body Mass Index 22.96 04/03/2023 2:47 PM [employer] Plan of Treatment Upcoming Encounters Date Type Department Care Team (Late st Contact Info) Description 08/10/2023 12:45 PM CDT Orders Only [facility] [address] [place] [address] [facility], [place] [facility] Maintenance Due Date Last [...] 1 SITE PERIPHERAL Routine 04/03/2019 9:19 AM [employer] Other specified disorders of bone density and structure, multiple sites Osteopenia, unspecified location from Last 3 Months or Most Recently Relevant to Health Maintenance Results * (ABNORMAL) INR,POCT (07/04/2023 11:31 AM CDT) Only the most recent of2 resultswithin the time period is included. INR 2.2(H) <1.3 07/04/2023 11:39 AM CDT [facility] Blood BLOOD SPECIMEN / Unknown 07/04/2023 11:31 AM CDT 07/04/2023 11:39 AM CDT Narrative [facility] - 07/04/2023 11:39 AM CDT ?Therapeutic Range 2.0-3.0 for most anticoagulated patients 2.5-3.5 or 4.0 for high risk patients Mahnaz Howell DO LABORATORY Performing Organization Address City/State/[facility] Co de Phone Number [facility] [address] [place] [address], * XR MAMMO EULALIA BILAT SCREEN (06/05/2023 [...] care provider. XR MAMMO EULALIA BILAT SCREEN [[id number]] CLINICAL HISTORY: ??This is an asymptomatic 83 y.o. patient. INDICATION FOR EXAM: Mammogram Screening. TECHNIQUE: CC & MLO views were obtained. ??This study was evaluated with the assistance of Computer-Aided Detection. Breast Tomosynthesis was used in interpretation. COMPARISON FILM: Yes 05/23/22 [facility] 05/04/21 [facility] FINDINGS: ??The breasts are heterogeneously dense, which may obscure small masses. There are no dominant masses, suspicious micro calcifications or areas of architectural distortion. Mahnaz Howell DO MAMMO * XR DXA BONE DENSITY 1 SITE AXIAL AND 1 SITE PERIPHERAL (04/03/2019 9:19 AM [employer]) Anatomical Region Laterality Modality LUMBAR SPINE Other Narrative 04/09/2019 8:56 AM [employer] Please see scanned document for results of this study. Mahnaz Howell DO DEXA from Last 3 Months or Most Recently Relevant to Health Maintenance Care Teams Water Mangle Tender Relationship Specialty Start Date End Date Mahnaz Howell DO [address] [place] [address] PCP - General Family Practice 03/27/19 Lev Escoto MD Orthopedics Surgery - Orthopedics 06/13/11
--- OUTSIDE RECORDS SUMMARY | 2023-07-28 19:38 | XMS_ITS | Clinical Summary ---
Author Name Unknown Organization [facility] [employer] [facility] Address [address] [address] Phone Care Team Providers Care Cab Starter Name Role Phone Unavailable Primary Care Provider [...]
[2023-07-28] MEDS: ACETAMINOPHEN 325 MG TABLET 650 MG PO (21:17)
[2023-07-28] MEDS: SODIUM CHLORIDE 0.9 % (FLUSH) 10 ML SYRINGE 5 ML IVF (21:18)
[2023-07-29 03:00] VITALS: PULSE 53
[2023-07-29 03:44] VITALS: BP 149/81; PULSE 53; RESP 14; TEMP 36.6; O2SAT 91
--- NOTE | 2023-07-29 06:37 | PC.NURSE ---
Arrived to floor at 2330. A&O pleasant and cooperative. Permissive hypertension. VS otherwise stable. Neuros unremarkable. Denies any headache, dizziness, or vision changes. Up w/ SBA to the bathroom. Denies pain. Using call light appropriately.
[2023-07-29 06:49] LABS: INR 1.86 (0.91-1.10); Prothrombin Time 22.8 Seconds
[2023-07-29 07:35] VITALS: BP 147/91; PULSE 61; RESP 16; TEMP 36.3; O2SAT 93
[2023-07-29 07:54] LABS: Cholesterol* 197 mg/dL (90-199)
[2023-07-29 07:55] LABS: HDL Cholesterol* 83 mg/dL (>=50); LDL Cholesterol Calculated 94 mg/dL (<100); Triglycerides* 99 mg/dL (40-149)
[2023-07-29 09:00] VITALS: PULSE 70
[2023-07-29] MEDS: WARFARIN 2.5 MG TABLET 5 MG PO (09:11)
[2023-07-29] MEDS: ROSUVASTATIN CALCIUM 10 MG TABLET 20 MG PO (09:11)
[2023-07-29] MEDS: CYANOCOBALAMIN (VITAMIN B-12) 500 MCG TABLET 1000 MCG PO (09:11)
[2023-07-29 11:00] VITALS: BP 159/91; PULSE 58; RESP 16; TEMP 36.7; O2SAT 95
--- NOTE | 2023-07-29 13:40 | P.DS_ITS ---
DS: Providers Provider Date Seen: 07/29/23 Date of admission: 07/28/23 19:35 Primary care physician: Mahnaz Howell DO Admitting Clinician: Fadi Perera MD Attending Physician on discharge: Morenita Rosario [facility], PA-C [place] Hospitalist Date of Discharge: 07/29/23 DS: Diagnosis Discharge Diagnosis (1) Stroke: Status: Acute Problem details: Stroke manifested as unsteady gait, diplopia and difficulty speaking. Symptoms resolving prior to discharge. CT head without acute intracranial abnormality. MRI brain showing small acute infarct involving the anteromedial left thalamus with an additional punctate focus of ischemia at the left parietal cortex. Telemetry overnight without acute activity. Lipid panel rather unremarkable. Echocardiogram shows 1. Normal LV size, normal wall thickness, normal global systolic function with an estimated EF of 65 - 70%. 2. Right ventricular cavity size is normal, global systolic RV function is normal. 3. Mildly enlarged left atrium. Discussed with Dr. Goss, Neurology. Suspects embolic stroke of unidentified source. Recommends discontinuing warfarin, starting Xarelto 20 mg daily. Continue rosuvastatin. No need for outpatient neurology follow-up at this time. Could consider outpatient Zio patch monitoring x2 weeks for possible arrhythmia with PCP. (2) Diplopia: Status: Acute Problem details: Due to stroke, resolved prior to discharge (3) Hypertension: Status: Acute Problem details: Blood pressure elevated at this time probably due to stroke. Permissive hypertension allowed during hospital course. Resuming Cardizem for hypertension and SVT on discharge (4) Chronic anticoagulation: Status: Acute Problem details: Per neurology recommendations, discontinue warfarin, start Xarelto 20 mg daily DS: Summary Hospital Course Hospital Course: [age] year old femur past medical history significant for hypertension, chronic anticoagulation was admitted to the medical floor for further management acute CVA. Course of care and details as noted above. Remainder of chronic medical comorbidities were monitored and managed with home medications. Status at Discharge Overall status at discharge: patient is back to baseline Time Spent with Patient Time attestation: Total time spent providing and/or coordinating discharge services: Time spent: Greater than 30 minutes Exam Narrative: Exam Narrative: PHYSICAL EXAM General: Pleasant, conversant, NAD Cardiovascular: RRR Pulmonary: No dyspnea Neurological: Alert, answering questions appropriately, no focal findings this morning Skin: Warm, dry. Const: Vital Signs, click to edit/add: Vital Signs - 24 hr 07/28/23 15:36 07/28/23 15:45 07/28/23 15:48 Temperature 98.3 F Pulse Rate 63 Pulse Rate [Pulse Oximeter] 63 Respiratory Rate 18 Blood Pressure Blood Pressure [Le ft Arm] Blood Pressure [Ri ght Arm] Blood Pressure [Ri ght Upper Arm] 196/104 H Pulse Oximetry 95 97 95 Oxygen Delivery Me thod Room Air 07/28/23 16:00 07/28/23 16:01 07/28/23 16:57 Temperature Pulse Rate 55 L 57 L 60 Pulse Rate [Pulse Oximeter] Respiratory Rate Blood Pressure 175/95 H Blood Pressure [Le ft Arm] Blood Pressure [Ri ght Arm] Blood Pressure [Ri ght Upper Arm] Pulse Oximetry 96 95 94 Oxygen Delivery Me thod 07/28/23 17:00 07/28/23 17:02 07/28/23 17:03 Temperature Pulse Rate 53 L 57 L 52 L Pulse Rate [Pulse Oximeter] Respiratory Rate 16 Blood Pressure 183/84 H Blood Pressure [Le ft Arm] Blood Pressure [Ri ght Arm] Blood Pressure [Ri ght Upper Arm] Pulse Oximetry 97 94 95 Oxygen Delivery Me thod 07/28/23 17:15 07/28/23 17:30 07/28/23 17:32 Temperature Pulse Rate 51 L 61 68 Pulse Rate [Pulse Oximeter] Respiratory Rate Blood Pressure 177/87 H Blood Pressure [Le ft Arm] Blood Pressure [Ri ght Arm] Blood Pressure [Ri ght Upper Arm] Pulse Oximetry 96 94 95 Oxygen Delivery Me thod 07/28/23 17:45 07/28/23 17:59 07/28/23 18:00 Temperature Pulse Rate 67 56 L 53 L Pulse Rate [Pulse Oximeter] Respiratory Rate Blood Pressure 196/90 H Blood Pressure [Le ft Arm] Blood Pressure [Ri ght Arm] Blood Pressure [Ri ght Upper Arm] Pulse Oximetry 95 95 96 Oxygen Delivery Me thod 07/28/23 18:03 07/28/23 18:15 07/28/23 18:30 Temperature Pulse Rate 58 L 52 L 62 Pulse Rate [Pulse Oximeter] Respiratory Rate Blood Pressure 181/84 H Blood Pressure [Le ft Arm] Blood Pressure [Ri ght Arm] Blood Pressure [Ri ght Upper Arm] Pulse Oximetry 96 95 99 Oxygen Delivery Me thod 07/28/23 18:32 07/28/23 18:45 07/28/23 19:35 Temperature 98.1 F Pulse Rate 63 56 L Pulse Rate [Pulse Oximeter] 67 Respiratory Rate 16 Blood Pressure 196/95 H Blood Pressure [Le ft Arm] 166/92 H Blood Pressure [Ri ght Arm] Blood Pressure [Ri ght Upper Arm] Pulse Oximetry 93 94 96 Oxygen Delivery Ok thod Room Air 07/28/23 19:38 07/28/23 22:27 07/28/23 22:34 Temperature 98.3 F 98.0 F Pulse Rate 57 L Pulse Rate [Pulse Oximeter] 74 60 Respiratory Rate 16 16 Blood Pressure Blood Pressure [Le ft Arm] 153/89 H Blood Pressure [Ri ght Arm] Blood Pressure [Ri ght Upper Arm] 154/84 H Pulse Oximetry 94 [facility] 07/28/23 22:37 07/29/23 03:00 07/29/23 03:44 Temperature 97.9 F Pulse Rate Pulse Rate [Pulse Oximeter] 60 53 L 53 L Respiratory Rate 14 Blood Pressure Blood Pressure [Le ft Arm] 149/81 H Blood Pressure [Ri ght Arm] Blood Pressure [Ri ght Upper Arm] Pulse Oximetry 91 Oxygen Delivery Ok thod Room Air 07/29/23 07:35 07/29/23 09:00 07/29/23 11:00 Temperature 97.4 F L 98.1 F Pulse Rate 70 Pulse Rate [Pulse Oximeter] 61 58 L Respiratory Rate 16 16 Blood Pressure Blood Pressure [Le ft Arm] Blood Pressure [Ri ght Arm] 147/91 H 159/91 H Blood Pressure [Ri ght Upper Arm] Pulse Oximetry 93 95 Oxygen Delivery Ok thod Room Air Room Air DS: Data Data Completed and Pending Labs on day of discharge: Labs from last 24 hours 07/29/23 07/28/23 05:39 16:00 WBC 3.26 L RBC 4.51 Hgb 14.3 Hct 43.8 MCV 97 MCH 32 MCHC 33 RDW Coeff of Kalyn 14.2 Plt Count 168 Neut % (Auto) 50.4 Lymph % (Auto) 36.2 [place] % (Auto) 11.0 Eos % (Auto) 1.8 Baso % (Auto) 0.6 Neut # (Auto) 1.60 L Lymph # (Auto) 1.20 [place] # (Auto) 0.40 Eos # (Auto) 0.10 Baso # (Auto) 0.00 Abs Immat Gran (auto) 0.00 Imm/Tot Granulo (auto) 0.0 INR 1.86 H 2.00 H APTT 47 H Sodium 138 Potassium 4.0 Chloride 106 Carbon Dioxide 29 Anion Gap 3 L BUN 14 Creatinine 0.7 Estimated Creat Clear 29.54 Estimated GFR 85 Glucose 92 Calcium 9.8 Total Bilirubin 0.9 Direct Bilirubin 0.0 AST 25 ALT 12 Alkaline Phosphatase 75 C-Reactive Protein < 0.5 L Total Protein 7.5 Albumin 4.3 Triglycerides 99 Cholesterol 197 LDL Cholesterol, Calc 94 HDL Cholesterol 83 Imaging MR Brain: Attestation: I have reviewed the pertinent imaging results. Radiologist's impression: Multiplanar, multisequence MRI of the brain obtained without contrast. Comparison: Earlier same day CT head and CTA head/neck Findings: There is a small (8 mm) area of acute ischemia involving the anteromedial left thalamus, with an additional punctate focus at the left parietal cortex. No evidence of hemorrhagic transformation. Punctate FLAIR hyperintense foci throughout the supratentorial white matter, typical of minor chronic microangio moira. Generalized cerebral volume loss. Unremarkable midline structures. Preserved major intracranial flow voids. Normal bone marrow signal. No paranasal sinus air-fluid level or mastoid effusion. Bilateral lens implants. Impression: 1. 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 2. No evidence of hemorrhagic transformation or midline shift. 3. Mild generalized cerebral volume loss and minor chronic microangiopathy changes. cta head: Attestation: I have reviewed the pertinent imaging results. Radiologist's impression: CTA head with contrast bolus tracking, 3D angiographic rendering using maximum intensity projection (MIP) and images permanently archived. FINDINGS: There is normal opacification of the intracranial vasculature. There is no large vessel occlusion. No aneurysm is identified. IMPRESSION: Unremarkable head CTA. cta neck: Attestation: I have reviewed the pertinent imaging results. Radiologist's impression: CTA neck with contrast bolus tracking, 3D angiographic rendering using maximum intensity projection (MIP) and images permanently archived. FINDINGS: There is carotid atherosclerosis. There is no significant carotid artery stenosis or dissection. There is no significant vertebral artery stenosis or dissection. The soft tissues of the neck are within normal limits. The cervical spine is in normal alignment. Degenerative changes are noted in the cervical spine. IMPRESSION: No significant carotid or vertebral artery stenosis or dissection. CT scan - head: Attestation: I have reviewed the pertinent imaging results. Radiologist's impression: CT head without contrast. COMPARISON: None. FINDINGS: Mild generalized volume loss. Mild ill-defined low attenuation in the periventricular and subcortical white matter. Intracranial atherosclerosis. There is no mass effect or midline shift. No hydrocephalus. No CT evidence of acute hemorrhage or infarction. No abnormal extra-axial fluid collection. Bone w indows show no acute calvarial fracture. Paranasal sinuses and orbits as imaged are unremarkable. IMPRESSION: 1. No acute intracranial abnormality. 2. Mild generalized volume loss and changes of chronic small vessel ischemic disease. Discharge Plan Discharge Disposition: Home, Self-Care Date of Admission: 07/28/23 19:35 Attending Provider on Discharge: Morenita Rosario Primary Care Provider: Mahnaz Howell Condition: Improved Anticipated Discharge Date/Time: 07/29/23 13:30 Discharge Medications: New rosuvastatin 10 mg Tablet 20 mg PO DAILY Qty: 90 0RF Xarelto 20 mg tablet 20 mg PO DAILY Qty: 30 0RF Rx Instructions: must administer with evening meal Continued cyanocobalamin (vitamin B-12) 1,000 mcg tablet 1,000 mcg PO DAILY famotidine 20 mg tablet 20 mg PO HS diltiazem HCl 120 mg capsule,extended release 24hr 120 mg PO DAILY calcium carbonate-vitamin D3 [Calcium 500 + D] 500 mg-10 mcg (400 unit) tablet 1 tab PO DAILY diclofenac sodium 1 % gel 2 - 4 g TOPICAL QID PRN Rx Instructions: Apply 2-4 g topically to affected area(s) four times daily. As needed for joint pain/arthritis acetaminophen 500 mg tablet 1,000 mg PO HS cetirizine [24Hour Allergy] 10 mg tablet 10 mg PO DAILY PRN Discontinued warfarin 2.5 mg tablet 2.5 - 5 mg PO DAILY Rx Instructions: 2.5 mg Mon,Wed,Fri and 5 mg all other days Discharge Orders: Discharge Order (Routine); Ordered 07/29/23 Ordered By: Morenita Rosario Patient Education: Stroke (GEN) Additional Instructions: You have had a stroke, thought to be embolic without identified source. Stop taking Warfarin. Instead take Xarelto once daily. Continue Crestor daily. Recommend close outpatient follow up with your PCP. You may need to wear a Ziopatch monitor as well to monitor your heart. At this time, you do not need to follow up with Neurology outpatient. Activity Level: No Restrictions Discharge Diet: Regular Follow Up Appointments: Eloisa Nice PA-C [Referring] - 08/01/23 11:35 am ([facility] for follow-up, and embolic CVA, medication management, recommend Ziopatch x 2weeks, no need for outpatient Neuro follow up) Mahnaz Howell, DO [Primary Care Provider] - (Post hospital follow up 3-5 days, embolic CVA, medication management, recommend Ziopatch x 2weeks, no need for outpatient Neuro follow up) Forms: Mineralist Info Instructions
--- NOTE | 2023-07-29 15:15 | PC.NURSE ---
Discharge Note: The patient discharged home with her ... She was educated regarding the BE FAST acronym for stroke signs and symptoms. Her follow up appointment was scheduled and all discharge instructions were given. Pema PRIDEN
== END 2023-07-29 14:40 | disposition home or self-care (01) ==
LOC: ED 17:54 → MEDSURG 19:37
PROVIDERS: Admitting Provider Family Medicine; Emergency Provider Family Medicine; PCP Family Medicine; Visit Provider Family Medicine
DX: I63.9 Cerebral infarction, unspecified (principal); H53.2 Diplopia; I10 Essential (primary) hypertension; Z79.01 Long term (current) use of anticoagulants
CPT/HCPCS: 36415; 70450; 70496; 70498; 70551; 80048; 80061; 80076; 85025; 85610; 85730; 86140; 93306; 94761; 96360; 99285; G0378; A9270; J7030; Q9967